=== PATIENT | female | born 1985 | race Caucasian/White ===

== ENCOUNTER 2017-06-15 00:14 | Emergency (ER) | payer MEDICAID ==
[~2017-06-15] VITALS: Ht 177.8 cm; Wt 149.7 kg
--- NOTE | 2017-06-15 01:11 | NUR ---
PT BIBSELF PT STATES "HAVENT TAKEN METFORMIN FOR 2.5 YEARS; CHECKED BLOOD SUGAR AND WAS 431D/GL" DENIES ANY S/S HYPERGLYCEMIA. PT AOX3 RR EVEN AND UNLABORED. NO SOB NOTED. NAD NOTED. NO NVD AT THIS TIME. PT GOWNED AND PLACED ON MONITOR WAITING FOR MD GILL.
[2017-06-15] MEDS ORDERED: IV NS 0.9% 1,000 ML BAG IV ONE (01:30)
[2017-06-15 02:00] LABS: BASOPHILS # (AUTO) 0.1 /CMM (0.0-0.2); BASOPHILS % (AUTO) 0.7 % (0.0-2.0); EOSINOPHILS # (AUTO) 0.2 /CMM (0.0-0.7); EOSINOPHILS % (AUTO) 1.9 % (0.0-6.0); HEMATOCRIT 43 % (33-45); HEMOGLOBIN 14.4 g/dL (11.5-14.8); LYMPHOCYTES # (AUTO) 3.3 /CMM (0.8-4.8); LYMPHOCYTES % (AUTO) 27.4 % (20.0-44.0); MEAN CORPUSCULAR HEMOGLOBIN 29 PG (26.0-33.0); MEAN CORPUSCULAR HGB CONC 33 g/dl (31.0-36.0); MEAN CORPUSCULAR VOLUME 86 fL (82-100); MONOCYTES # (AUTO) 0.4 /CMM (0.1-1.30); MONOCYTES % (AUTO) 3.7 % (2.0-12.0); NEUTROPHILS % (AUTO) 66.3 % (43.0-81.0); PLATELET COUNT (AUTO) 218 /CMM (150-450); RDW COEFFICIENT OF VARIATION 13.3 (11.5-15.0); RED BLOOD CELL COUNT(AUTO) 5.02 MIL/uL (4.0-5.2); WHITE BLOOD COUNT (AUTO) 12.1 K/uL (4.3-11.0)
[2017-06-15 02:12] LABS: APPEARANCE,URINE CLEAR (CLEAR); BILIRUBIN,URINE NEGATIVE (NEGATIVE); BLOOD, URINE 2+ Ery/uL (NEGATIVE); COLOR,URINE YELLOW (YELLOW); KETONES,URINE NEGATIVE (NEGATIVE); LEUKOCYTE ESTERASE ,URINE NEGATIVE (NEGATIVE); NITRITE, URINE NEGATIVE (NEGATIVE); PH,URINE 5.5 (5.0-8.0); PROTEIN,URINE NEGATIVE (NEGATIVE); UGLUCOSE 3+ mg/dL (NEGATIVE); UROBILINOGEN,URINE 0.2 EU/dL (0.2)
[2017-06-15 02:21] LABS: BACTERIA,URINE Few /HPF (None Seen); SQUAMOUS EPITHELIAL CELL,UR Moderate /HPF (None Seen)
[2017-06-15 02:21] LABS: CALCIUM, SERUM 8.9 mg/dL (8.5-10.1); CREATININE 0.7 mg/dL (0.6-1.3); POTASSIUM 3.9 mmol/L (3.5-5.1)
--- NOTE | 2017-06-15 02:42 | NUR ---
DR. MACIEL AT BEDSIDE SPEAKING TO PT REGARDING RESULTS.
--- NOTE | 2017-06-15 03:12 | NUR ---
IV removed. Catheter intact and site benign. Pressure and 4x4 applied to site. No bleeding noted. Patient discharged to home in stable condition. Written and verbal after care instructions given. Patient verbalizes understanding of instruction. ambulatory with a steady gait
[2017-06-15 03:14] VITALS: BP 138/78
== END 2017-06-15 03:14 | disposition home or self-care (01) ==
LOC: ER 00:24
DX: E11.65 Type 2 diabetes mellitus with hyperglycemia (principal); Z88.2 Allergy status to sulfonamides
CPT/HCPCS: 36415; 80048; 81001; 82962; 84703; 85025; 96360; 99284; A4606; J7030; Z7610; 81000-TC

== ENCOUNTER 2018-06-25 21:29 | Emergency (ER) | payer MEDICAID ==
[~2018-06-25] VITALS: Ht 180.3 cm; Wt 141.5 kg
[2018-06-25 21:37] VITALS: BP 150/94
== END 2018-06-26 00:23 | disposition home or self-care (01) ==
LOC: ER 21:31
DX: M25.531 Pain in right wrist (principal); E11.9 Type 2 diabetes mellitus without complications; Z88.2 Allergy status to sulfonamides; W01.0XXA Fall on same level from slipping, tripping and stumbling without subsequent striking against object, initial encounter; Y93.89 Activity, other specified; Y92.89 Other specified places as the place of occurrence of the external cause; Y99.8 Other external cause status
CPT/HCPCS: 73090-TC; 73110

== ENCOUNTER 2018-09-18 11:37 | Emergency (ER) | payer MEDICAID ==
[~2018-09-18] VITALS: Ht 180.3 cm; Wt 142.4 kg
[2018-09-18 11:44] VITALS: BP 153/86
--- NOTE | 2018-09-18 12:08 | NUR ---
RX PROVIDED AND INSTRUCTION GIVEN.
== END 2018-09-18 12:10 | disposition home or self-care (01) ==
LOC: ER 11:37
DX: J03.90 Acute tonsillitis, unspecified (principal); E11.9 Type 2 diabetes mellitus without complications; Z88.2 Allergy status to sulfonamides

== ENCOUNTER 2020-01-07 17:32 | Emergency (ER) | payer MEDICAID ==
[~2020-01-07] VITALS: Ht 177.8 cm; Wt 138.3 kg
--- NOTE | 2020-01-07 17:45 | NUR ---
PT AMBULATORY TO ER BED 13 C/O RIGHT SIDED BUTTOCK AREA EUNICE R/T RLE X 1 WEEK. PT STATES WORST TODAY. HX OF SCIATICA. 10 PAIN. DENIES ANY RECENT TRAUMA. VSS. AWAITING MD GILL.
--- NOTE | 2020-01-07 17:55 | NUR ---
WILDAP PA AT BEDSIDE FOR EVAL.
[2020-01-07] MEDS ORDERED: MORPHINE SULFATE INJ 4 MG/ML DISP.SYRIN ONE (17:59)
[2020-01-07] MEDS ORDERED: DEXAMETHASONE SOD PHOSPHATE 10 MG/ML VIAL ONE (17:59)
[2020-01-07] MEDS ORDERED: KETOROLAC TROMETHAMINE INJ 60 MG/2 ML VIAL IM ONE ×2 (17:59→18:00)
[2020-01-07] MEDS ORDERED: MORPHINE SULFATE INJ 2 MG/ML DISP.SYRIN IM ONE (18:00)
[2020-01-07] MEDS ORDERED: DEXAMETHASONE SOD PHOSPHATE 10 MG/ML VIAL IM ONE (18:00)
--- NOTE | 2020-01-07 18:09 | NUR ---
RADIOLOGY AT BEDSIDE FOR LUMBAR SPINE XRAY.
[2020-01-07 19:09] VITALS: BP 155/105
--- NOTE | 2020-01-07 19:09 | NUR ---
Patient discharged to home in stable condition. Written and verbal after care instructions given. Patient verbalizes understanding of instruction.
== END 2020-01-07 19:10 | disposition home or self-care (01) ==
LOC: ER 17:32
DX: M54.41 Lumbago with sciatica, right side (principal); E11.9 Type 2 diabetes mellitus without complications; Z88.2 Allergy status to sulfonamides
CPT/HCPCS: 72100; 96372 ×2; 99284; J1100; J1885; J2270

== ENCOUNTER 2020-11-16 15:53 | Emergency (ER) | payer MEDICAID ==
[~2020-11-16] VITALS: Ht 180.3 cm; Wt 133.4 kg
[2020-11-16 16:12] VITALS: BP 116/65
--- NOTE | 2020-11-16 16:15 | NUR ---
right foot pain s/p stepped on a broken glass, tdap not sure, 10PS. Patient a/ox4, breathing even and unlabored, no sob noted. Needs attended.
[2020-11-16] MEDS ORDERED: TDAP [DIPH/PERTUSSIS/TET] 0.5 ML VIAL IM ONE ×2 (17:27→17:30)
[2020-11-16] MEDS ORDERED: BLOOD SUGAR DIAGNOSTIC 1 EACH STRIP IN ONE (17:30)
[2020-11-16] MEDS ORDERED: CIPR500T5 PO (18:26)
--- NOTE | 2020-11-16 18:51 | NUR ---
CRUTCHES PROVIDED. Patient discharged to home in stable condition. Written and verbal after care instructions given. Patient verbalizes understanding of instruction.
== END 2020-11-16 18:51 | disposition home or self-care (01) ==
LOC: ER 15:53
DX: S91.311A Laceration without foreign body, right foot, initial encounter (principal); E11.65 Type 2 diabetes mellitus with hyperglycemia; E66.01 Morbid (severe) obesity due to excess calories; Z68.41 Body mass index [BMI] 40.0-44.9, adult; F17.200 Nicotine dependence, unspecified, uncomplicated; Z88.2 Allergy status to sulfonamides; W22.8XXA Striking against or struck by other objects, initial encounter; Y93.89 Activity, other specified; Y92.89 Other specified places as the place of occurrence of the external cause; Y99.8 Other external cause status
CPT/HCPCS: 73630-TC; 82962-TC; 90715

== ENCOUNTER 2021-02-20 10:07 | Emergency (ER) | payer MEDICAID ==
[~2021-02-20] VITALS: Ht 180.3 cm; Wt 129.3 kg
[~2021-02-20 10:07] MED LIST: CIPR500T5 PO
[2021-02-20 10:32] VITALS: BP 135/72
[2021-02-20] MEDS ORDERED: HYDROCODONE/APAP 5/325MG TABLET ONE (10:47)
[2021-02-20] MEDS ORDERED: HYDROCODONE/APAP 5/325MG TABLET PO ONE (11:00)
[2021-02-20] MEDS ORDERED: HYDR-3972 PO (11:54)
[2021-02-20] MEDS ORDERED: IBUP-1957 PO (11:54)
== END 2021-02-20 12:02 | disposition home or self-care (01) ==
LOC: ER 10:57
DX: S62.337A Displaced fracture of neck of fifth metacarpal bone, left hand, initial encounter for closed fracture (principal); F17.200 Nicotine dependence, unspecified, uncomplicated; Z88.2 Allergy status to sulfonamides; W05.1XXA Fall from non-moving nonmotorized scooter, initial encounter; Y93.89 Activity, other specified; Y92.89 Other specified places as the place of occurrence of the external cause; Y99.8 Other external cause status
CPT/HCPCS: 73130-TC

== ENCOUNTER 2021-02-28 15:51 | Emergency (ER) | payer MEDICAID ==
[~2021-02-28] VITALS: Ht 180.3 cm; Wt 129.3 kg
[~2021-02-28 15:51] MED LIST changes: +HYDR-3972 PO; +IBUP-1957 PO
[2021-02-28 16:05] VITALS: BP 151/77
--- NOTE | 2021-02-28 16:09 | NUR ---
BIBS FOR C/O SORE THROAT SINCE LAST NIGHT. RATES PAIN 6/10. IN ROOM AIR AND DENIES SOB. RESPIRATION REGULAR AND UNLABORED.
[2021-02-28] MEDS ORDERED: AMOX500C2 PO (16:19)
--- NOTE | 2021-02-28 16:26 | NUR ---
Patient discharged to home in stable condition. Written and verbal after care instructions given. Patient verbalizes understanding of instruction.
== END 2021-02-28 16:27 | disposition home or self-care (01) ==
LOC: ER 15:54
DX: J02.0 Streptococcal pharyngitis (principal); F17.200 Nicotine dependence, unspecified, uncomplicated; Z88.2 Allergy status to sulfonamides; Z79.899 Other long term (current) drug therapy

== ENCOUNTER 2021-11-14 19:22 | Emergency (ER) | payer MEDICAID ==
[~2021-11-14] VITALS: Ht 177.8 cm; Wt 139.3 kg
[~2021-11-14 19:22] MED LIST changes: +AMOX500C2 PO
[2021-11-14 19:37] VITALS: BP 129/74
--- NOTE | 2021-11-14 20:42 | NUR ---
WATCH DIAL STONER AT BEDSIDE
[2021-11-14] MEDS ORDERED: GABA-532 PO (21:37)
== END 2021-11-14 21:44 | disposition home or self-care (01) ==
LOC: ER 19:25
DX: R20.2 Paresthesia of skin (principal); Z88.2 Allergy status to sulfonamides; Z79.899 Other long term (current) drug therapy
CPT/HCPCS: 93971-TC

== ENCOUNTER 2022-02-17 15:04 | Emergency (ER) | payer MEDICAID ==
[~2022-02-17] VITALS: Ht 177.8 cm; Wt 127.5 kg
[~2022-02-17 15:04] MED LIST changes: +GABA-532 PO
[2022-02-17 15:35] VITALS: BP 122/76
[2022-02-17] MEDS ORDERED: AMOX875T2 PO (16:17)
[2022-02-17] MEDS ORDERED: DEXAMETHASONE SOLN 5 MG/5 ML UDC ONE (16:22)
[2022-02-17] MEDS ORDERED: AMOXICILLIN TRIHYDRATE 250 MG CAPSULE ONE (16:22)
[2022-02-17] MEDS ORDERED: KETOROLAC TROMETHAMINE INJ 30 MG/ML VIAL ONE (16:22)
[2022-02-17] MEDS ORDERED: KETOROLAC TROMETHAMINE INJ 60 MG/2 ML VIAL IM ONE (16:30)
[2022-02-17] MEDS ORDERED: AMOXICILLIN TRIHYDRATE 500 MG CAPSULE PO ONE (16:30)
[2022-02-17] MEDS ORDERED: DEXAMETHASONE SOLN 5 MG/5 ML UDC PO ONE (16:30)
--- NOTE | 2022-02-17 16:31 | NUR ---
Patient discharged to home in stable condition. Written and verbal after care instructions given. Patient verbalizes understanding of instruction.
== END 2022-02-17 16:32 | disposition home or self-care (01) ==
LOC: ER 15:05
DX: J02.0 Streptococcal pharyngitis (principal); E11.9 Type 2 diabetes mellitus without complications; Z88.2 Allergy status to sulfonamides
CPT/HCPCS: 99283; 96372; J1885; J8540

== ENCOUNTER 2022-06-28 12:24 | Emergency (ER) | payer MEDICAID ==
[~2022-06-28] VITALS: Ht 177.8 cm; Wt 122.5 kg
[~2022-06-28 12:24] MED LIST changes: +AMOX875T2 PO
[2022-06-28 12:32] VITALS: BP 152/70
[2022-06-28] MEDS ORDERED: BENZ-13 PO (13:50)
[2022-06-28] MEDS ORDERED: IBUP-1955 PO (13:50)
[2022-06-28] MEDS ORDERED: AMOX-430 PO (13:50)
[2022-06-28] MEDS ORDERED: KETOROLAC TROMETHAMINE INJ 30 MG/ML VIAL IM ONE (14:00)
[2022-06-28] MEDS ORDERED: DEXAMETHASONE SOD PHOSPHATE 10 MG/ML VIAL IM ONE (14:00)
[2022-06-28] MEDS ORDERED: KETOROLAC TROMETHAMINE 15 MG/ML VIAL ONE (15:13)
[2022-06-28] MEDS ORDERED: DEXAMETHASONE SOD PHOSPHATE 10 MG/ML VIAL ONE (15:13)
== END 2022-06-28 15:27 | disposition home or self-care (01) ==
LOC: ER 12:25
DX: J04.0 Acute laryngitis (principal); J06.9 Acute upper respiratory infection, unspecified; E11.9 Type 2 diabetes mellitus without complications; Z79.899 Other long term (current) drug therapy; Z88.2 Allergy status to sulfonamides
CPT/HCPCS: 99283; 96372; 84703; J1100; J1885

== ENCOUNTER 2023-07-06 16:50 | Emergency (ER) | payer MEDICAID, OTHER ==
[~2023-07-06] VITALS: Ht 177.8 cm; Wt 117.9 kg
[~2023-07-06 16:50] MED LIST changes: +AMOX-430 PO; +BENZ-13 PO; +IBUP-1955 PO
[2023-07-06 18:21] LABS: BASOPHILS # (AUTO) 0.1 K/uL (0.0-0.2); BASOPHILS % (AUTO) 0.6 % (0.0-2.0); EOSINOPHILS # (AUTO) 0.2 K/uL (0.0-0.7); EOSINOPHILS % (AUTO) 2.7 % (0.0-6.0); HEMATOCRIT 47 % (33-45); HEMOGLOBIN 15.3 g/dL (11.5-14.8); LYMPHOCYTES # (AUTO) 2.2 K/uL (0.8-4.8); LYMPHOCYTES % (AUTO) 25.7 % (20.0-44.0); MEAN CORPUSCULAR HEMOGLOBIN 31 PG (26.0-33.0); MEAN CORPUSCULAR HGB CONC 33 g/dl (31.0-36.0); MEAN CORPUSCULAR VOLUME 94 fL (82-100); MONOCYTES # (AUTO) 0.4 K/uL (0.1-1.30); MONOCYTES % (AUTO) 4.8 % (2.0-12.0); NEUTROPHILS # (AUTO) 5.6 K/uL (1.8-8.9); NEUTROPHILS % (AUTO) 66.2 % (43.0-81.0); PLATELET COUNT (AUTO) 176 K/uL (150-450); RED BLOOD CELL COUNT(AUTO) 4.96 MIL/uL (4.0-5.2); RED CELL DISTRIBUTION WIDTH 13.1 % (11.5-15.0); WHITE BLOOD COUNT (AUTO) 8.4 K/uL (4.3-11.0)
[2023-07-06 18:34] LABS: CALCIUM, SERUM 8.4 mg/dL (8.5-10.1); CARBON DIOXIDE 24 mmol/L (21-32); CHLORIDE 99 mmol/L (98-107); CREATININE 0.7 mg/dL (0.6-1.3); POTASSIUM 3.8 mmol/L (3.5-5.1); SODIUM SERUM 130 mmol/L (136-145); UREA NITROGEN, BLOOD 17 mg/dL (7-18)
[2023-07-06 18:40] LABS: GLUCOSE 407 mg/dL (74-106)
[2023-07-06] MEDS ORDERED: LORAZEPAM 0.5 MG TABLET ONE (19:00)
[2023-07-06] MEDS ORDERED: IV LR 1000 ML 1,000 ML BAG IV ONE (19:00)
[2023-07-06] MEDS: LORAZEPAM 1 MG TABLET PO ONE (19:02)
[2023-07-06 19:33] VITALS: BP 125/87; TEMP 98; O2SAT 96
== END 2023-07-06 19:34 | disposition home or self-care (01) ==
LOC: ER 16:50
DX: E11.65 Type 2 diabetes mellitus with hyperglycemia (principal); R07.9 Chest pain, unspecified; F41.9 Anxiety disorder, unspecified; Z88.2 Allergy status to sulfonamides; Z79.899 Other long term (current) drug therapy
CPT/HCPCS: 99285; 71045; 93005; 85025; 80048; 36415; 84484; J7120

== ENCOUNTER 2024-10-27 19:56 | Emergency (ER) | payer OTHER ==
[~2024-10-27] VITALS: Ht 177.8 cm; Wt 95.3 kg
[2024-10-27] MEDS: KETOROLAC TROMETHAMINE INJ 30 MG/ML VIAL IM ONE (21:02)
[2024-10-27] MEDS ORDERED: KETOROLAC TROMETHAMINE INJ 30 MG/ML VIAL ONE (21:02)
[2024-10-27 21:29] VITALS: BP 120/70; TEMP 98.5; O2SAT 98
== END 2024-10-27 21:30 | disposition home or self-care (01) ==
LOC: ER 20:02
DX: M71.22 Synovial cyst of popliteal space [Baker], left knee (principal); E11.9 Type 2 diabetes mellitus without complications; Z79.1 Long term (current) use of non-steroidal anti-inflammatories (NSAID); Z79.899 Other long term (current) drug therapy; Z88.2 Allergy status to sulfonamides
CPT/HCPCS: 99283; 96372; J1885